=== PATIENT | female | born 1990 | race Caucasian/White ===

== ENCOUNTER 2017-02-26 21:23 | Outpatient (CLI) | payer OTHER ==
[~2017-02-26] VITALS: Ht 156.2 cm; Wt 121.0 kg
[~2017-02-26 21:23] MED LIST: ALBU18HF INHALATION; AMIT25TA9 PO; AZIT250T94 PO; CIPR500T4 PO; DICY10CA60 PO; HYDR-3498 PO; ONDA4TAB8 PO; PRED20TA PO; denies meds & allergies
[2017-02-26] MEDS ORDERED: TERBUTALINE 1 MG/ML INJ SC ONE (22:30)
--- NOTE | 2017-02-27 00:04 | RADRPT ---
PROCEDURE: US OB Limited for Estimated Weight. CLINICAL INDICATION: 26 years of age, female. Cramping and spotting. Request estimated weigh t and GAUDENCIO. TECHNIQUE: Multiple sonographic images of the pelvis were obtained. Transabdominal imaging only w as performed. The images were reviewed on a PACS workstation. Image quality: Satisfactory. COMPARISON: No prior studies are available for comparison. FINDINGS: Sky : Number of fetuses: 1 GENERAL EVALUATION: Cardiac activity: Present. FHR 141 bpm Presentation: Cephalic Placenta: Placenta site: Anterior with marginal placenta previa. Inferior tip of the placenta exten ds to the internal loss of the cervix. Cervix (transabdominal): Closed. Does not appear grossly shortened. Measures 7.4 cm. Amniotic fluid: Maximal vertical pocket 4.8 cm DATING: Clinical ERON: June 25, 2017 EGA based on ERON: 23 weeks 0 days BIOMETRY: BPD = 5.3 cm , 22 weeks 0 days HC = 20.2 cm , 22 weeks 2 days AC = . 19.6 cm , 24 weeks 2 days FL = 4.1 cm , 23 weeks 3 days Composite sonographic age: 23 weeks 0 days plus or minus 2 weeks Estimated due date by ultrasound measurements: June 25, 2017 Estimated weight 612 g (73rd percentile) ANATOMY: Not evaluated. IMPRESSION: 1. Single living fetus in cephalic presentation. 2. Clinical gestation age of 23 weeks 0 days and clinical ERON June 25, 2017 are concordant with the composite sonographic age. 3. Amniotic fluid maximal vertical pocket is 4.8 cm. 4. Anterior placenta with marginal previa. Negative for sonographic evidence of placental abruption although this is a clinical diagnosis and ultrasound may be falsely negative. With regards to the m arginal placenta previa, recommend repeat ultrasound at 28-33 weeks. RPTAT: HCTS Physician Soco Date Time Electronically viewed and signed by Physician Soco on 02/27/2017 00:04 CS/
[2017-02-27 00:23] VITALS: Ht 156.2 cm; Wt 121.0 kg
[2017-02-27 00:26] VITALS: BP 115/56; PULSE 72; RESP 16
--- NOTE | 2017-02-27 01:30 | PN ---
Triage Information Date/Time February 27, 2017 Reason for visit: Vag spotting / bleeding Weeks of Gestation 23w /Para 4/2 Diabetes: none Hypertention: none Additional information Sx's just this evening. PMHx: obesity. PSHx: none. NKDA. Objective Vital Signs Date Time Temp Pulse Resp B/P Pulse Ox O2 Delivery O2 Flow Rate FiO2 02/27/17 00:26 98.4 72 16 115/56 98 Room Air Heart Rate: 130's Heart Rate Comments Very difficult to berry picker the baby's heart rate and the possibility of and UC's on NST due to early gestational age and the pt's abdominal obesity Contractions: None Results/Medications Imaging Results CX 7.4 cm long and closed. EFW 612 grams. MVP 4.8 cm. Disposition: Discharge Assessment/Plan A: IUP at 23 weeks. False labor. Spotting, P: Was going to administer a dose of terbutaline after p.o. hydration to see if would help the pain go away when the pt said the pain had completely resolved. No bleeding since admission. PTL precautions reviewed with pt. Pelvic rest and no lifting > 20#. LEONARD DING MD Feb 27, 2017 01:30
== END 2017-02-27 01:30 | disposition home or self-care (01) ==
LOC: OBT 21:23 → OBG 21:25 → OBT 02-27 01:30
PROVIDERS: ATTEND Obstetrics & Gynecology
DX: O46.8X2 Other antepartum hemorrhage, second trimester (principal); Z3A.23 23 weeks gestation of pregnancy
CPT/HCPCS: 76815; 76817; Z7500; G0463

== ENCOUNTER 2017-04-08 16:45 | Outpatient (CLI) | payer OTHER ==
[~2017-04-08] VITALS: Ht 154.9 cm; Wt 120.0 kg
[2017-04-08 17:04] VITALS: Ht 154.9 cm; Wt 120.0 kg
[2017-04-08] MEDS ORDERED: PREN1TAB79 PO (17:04)
[2017-04-08 17:05] VITALS: BP 101/64; PULSE 82; RESP 18
[2017-04-08] MEDS ORDERED: ONDANSETRON 4 MG INJ IV PRN (17:30)
[2017-04-08] MEDS ORDERED: LACTATED RINGER'S 1,000 ML IV* SCH (17:30)
--- NOTE | 2017-04-08 18:40 | RADRPT ---
PROCEDURE: US Lower extremity Venous. CLINICAL INDICATION: Bilateral lower extremity swelling TECHNIQUE: Multiple sonographic images of the bilateral lower extremity deep venous system was obt ained utilizing grayscale, color-flow, compressive sonography and doppler imaging with augmentation. The images were reviewed on a PACS workstation. COMPARISON: None. FINDINGS: There is normal compressibility and flow within the bilateral common femoral, deep femoral, superfic ial femoral and popliteal veins. The deep veins the calf were incompletely visualized. IMPRESSION: No sonographic evidence for deep venous thrombosis in the bilateral lower extremities. Physician Jammie Date Time Electronically viewed and signed by Physician Jammie on 04/08/2017 18:39 ML/
--- NOTE | 2017-04-08 19:01 | RADRPT ---
PROCEDURE: OB ultrasound CLINICAL INDICATION: labor TECHNIQUE: Multiple transverse and longitudinal OB images of the pelvis were obtained. The images were reviewed on a high-resolution PACS workstation. COMPARISON: 02/26/2017 FINDINGS: A single live intrauterine is seen. The presentation is left transverse. The placenta is grade 1-2 and is anterior in location. No evidence of placenta abruption or previa is seen. The feta l heart rate is 152 beats per minute. The amniotic fluid index is 14.2 cm. The cervix is closed solange suring 3.2 cm in length. movement 2 tone 2 breathing 2 Amniotic fluid 2 IMPRESSION: Biophysical profile of 02/10. RPTAT: HPNM Physician Jose Roberto Date Time Electronically viewed and signed by Physician Jose Roberto on 04/08/2017 19:01 /
[2017-04-08 19:19] LABS: BASOPHILS % 0.2 % (0.0-2.0); EOSINOPHILS # 0.2 10^3/ul (0.0-0.5); EOSINOPHILS % 1.6 % (0.0-7.0); HEMOGLOBIN 10.4 g/dl (12.0-16.0); LYMPHOCYTES # 2.6 10^3/ul (0.8-2.9); LYMPHOCYTES % 25.9 % (15.0-51.0); MEAN CORPUSCULAR HGB CONC 32.5 g/dl (32.0-37.0); MEAN CORPUSCULAR VOLUME 89.1 fl (82.0-101.0); MEAN PLATELET VOLUME 11.5 fl (7.4-10.4); MONOCYTE # 0.5 10^3/ul (0.3-0.9); MONOCYTES % 5.3 % (0.0-11.0); NEUTROPHIL # 6.7 10^3/ul (1.6-7.5); NEUTROPHILS % 66.7 % (39.0-77.0); PLATELET COUNT 290 10^3/UL (140-415); RED BLOOD COUNT 3.59 10^6/ul (4.20-5.40); RED CELL DISTRIBUTION WIDTH 13.9 % (11.5-14.5); WHITE BLOOD COUNT 10.1 10^3/ul (4.8-10.8)
[2017-04-08 19:36] LABS: ALBUMIN 3.3 g/dl (3.3-4.9); ALBUMIN/GLOBULIN RATIO 0.89; BILIRUBIN,INDIRECT 0.5 mg/dl (0-1.1); BILIRUBIN,TOTAL 0.5 mg/dl (0.2-1.3); CALCIUM 8.7 mg/dl (8.4-10.2); CREATININE 0.48 mg/dl (0.44-1.00); POTASSIUM 4.3 mmol/L (3.5-5.1)
[2017-04-08 19:38] LABS: ADD UMIC YES; UR ASCORBIC ACID NEGATIVE (NEGATIVE); UR BILIRUBIN (Dip) 1+ mg/dL (NEGATIVE); UR BLOOD (Dip) NEGATIVE (NEGATIVE); UR CLARITY SLIGHTLY CLOUDY (CLEAR); UR COLOR AMBER (YELLOW); UR GLUCOSE (Dip) NEGATIVE (NEGATIVE); UR KETONES (Dip) NEGATIVE (NEGATIVE); UR LEUKOCYTE ESTERASE (Dip) NEGATIVE Leu/ul (NEGATIVE); UR MUCUS MANY /HPF (NONE SEEN); UR NITRITE (Dip) NEGATIVE (NEGATIVE); UR RBC 1 /HPF (0-5); UR SQUAMOUS EPITHELIAL CELL FEW /HPF (FEW); UR TOTAL PROTEIN (Dip) 1+ mg/dl (NEGATIVE); UR UROBILINOGEN (Dip) 2+ mg/dL (NEGATIVE)
[2017-04-08] MEDS ORDERED: ACETAMINOPHEN 500 MG TAB PO STA (20:05)
--- NOTE | 2017-04-08 22:28 | PN ---
Triage Information Date/Time April 08, 2017 Reason for visit: Shortness of breath, nausea vomiting, back pain, constipation and feeling pelvic pain and pressure with bowel movements. Weeks of Gestation 28 weeks and 6 days /Para 4 para 2 Additional information 26-year-old 4 para 2 with IUP at 28 weeks and 6 days presented with complaint of shortness of breath, nausea vomiting, back pain, leg pain as well as constipation and feeling pelvic pressure with bowel movements as well as bilateral lower abdominal pain increased with walking and activity. Patient is morbidly obese. Denies any leaking of fluid, vaginal bleeding or decreased movement or contraction Objective Vital Signs Date Time Temp Pulse Resp B/P Pulse Ox O2 Delivery O2 Flow Rate FiO2 04/08/17 17:05 98.6 82 18 101/64 98 Room Air Heart Rate: 120's Contractions: None Exam General appearance: Alert and oriented 4. Patient does not appear to be in any acute distress. Morbidly obese Abdomen: Soft, gravid, fundal height consistent with gestational age Difficulty in monitoring due to morbid obesity no contraction. extremities: No calf tenderness, no click no edema , Negative Homans sign Lungs: Clear to auscultation bilaterally CV: RRR Results/Medications Result Diagram: 04/08/17 1830 04/08/17 1830 Results 24 hrs Laboratory Tests Test 04/08/17 18:30 White Blood Count 10.1 # Red Blood Count 3.59 #L Hemoglobin 10.4 #L Hematocrit 32.0 L Mean Corpuscular Volume 89.1 Mean Corpuscular Hemoglobin 29.0 Mean Corpuscular Hemoglobin Concent 32.5 Red Cell Distribution Width 13.9 Platelet Count 290 Mean Platelet Volume 11.5 H Neutrophils % 66.7 Lymphocytes % 25.9 Monocytes % 5.3 Eosinophils % 1.6 Basophils % 0.2 Nucleated Red Blood Cells % 0.0 Neutrophils # 6.7 Lymphocytes # 2.6 Monocytes # 0.5 Eosinophils # 0.2 Basophils # 0.0 Nucleated Red Blood Cells # 0.0 Urine Color JONI Urine Clarity SLIGHTLY CLOUDY A Urine pH 6.0 Urine Specific [place] 1.030 Urine Ketones NEGATIVE Urine Nitrite NEGATIVE Urine Bilirubin 1+ H Urine Urobilinogen 2+ H Urine Leukocyte Esterase NEGATIVE Urine Microscopic RBC 1 Urine Microscopic WBC 6 H Urine Squamous Epithelial Cells FEW Urine Mucus MANY A Urine Hemoglobin NEGATIVE Urine Glucose NEGATIVE Urine Total Protein 1+ H Sodium Level 137 Potassium Level 4.3 Chloride Level 108 Carbon Dioxide Level 24 Anion Gap 9 Blood Urea Nitrogen 8 Creatinine 0.48 Glucose Level 76 Calcium Level 8.7 Total Bilirubin 0.5 Direct Bilirubin 0.00 Indirect Bilirubin 0.5 Aspartate Amino Transf (AST/SGOT) 19 Alanine Aminotransferase (ALT/SGPT) 27 Alkaline Phosphatase 151 H Total Protein 7.0 Albumin 3.3 Globulin 3.70 H Albumin/Globulin Ratio 0.89 Imaging Results PROCEDURE: US Lower extremity Venous. CLINICAL INDICATION: Bilateral lower extremity swelling TECHNIQUE: Multiple sonographic images of the bilateral lower extremity deep venous system was obtained utilizing grayscale, color-flow, compressive sonography and doppler imaging with augmentation. The images were reviewed on a PACS workstation. COMPARISON: None. FINDINGS: There is normal compressibility and flow within the bilateral common femoral, deep femoral, superficial femoral and popliteal veins. The deep veins the calf were incompletely visualized. IMPRESSION: No sonographic evidence for deep venous thrombosis in the bilateral lower extremities. PROCEDURE: OB ultrasound CLINICAL INDICATION: labor TECHNIQUE: Multiple transverse and longitudinal OB images of the pelvis were obtained. The images were reviewed on a high-resolution PACS workstation. COMPARISON: 02/26/2017 FINDINGS: A single live intrauterine is seen. The presentation is left transverse. The placenta is grade 1-2 and is anterior in location. No evidence of placenta abruption or previa is seen. The heart rate is 152 beats per minute. The amniotic fluid index is 14.2 cm. The cervix is closed measuring 3.2 cm in length. movement 2 tone 2 breathing 2 Amniotic fluid 2 IMPRESSION: Biophysical profile of 02/10. RPTAT: HPNM Disposition: Discharge Assessment/Plan IUP at 28 weeks and 6 days No evidence of labor or PPROM cervical length: 3.7 cm Shortness of breath, no evidence of DVT Doppler lower extremity negative Normal oxygen saturation in room air EKG normal Lower abdominal pelvic pain increased with walking and activity, round ligament pain. Advised patient to use abdominal binder Pelvic pain with constipation. Recommended to have stool softener and adequate hydration Patient will be discharged home testing BPP: 02/10, reassuring Strict labor precautions and kick count and follow-up within 24- 48 hours with primary DISPATCH[facility] [place] discussed with the patient and recommended. Patient verbalized understanding all above discussion and agreed to comply with instructions. MATTHEW COVINGTON MD Apr 08, 2017 22:28
--- NOTE | 2017-04-08 22:29 | TRIAGE ---
OB Triage Datetime Report Generated by CPN: 04/08/2017 22:29 Datetime: 04/08/2017 21:22 Stage of : OB Triage Datetime: 04/08/2017 21:07 Stage of : OB Triage Assessment Type: Triage Datetime: 04/08/2017 20:53 Stage of : OB Triage Labor Evaluation Frequency: None noted or palpated. Pt denies abd cramping. Monitor Mode: External Heart Rate FHR Baseline Rate: 150 Monitor Mode: Doppler Datetime: 04/08/2017 20:52 Stage of : OB Triage Datetime: 04/08/2017 20:17 Stage of : OB Triage Datetime: 04/08/2017 20:05 Stage of : OB Triage Datetime: 04/08/2017 20:00 Stage of : OB Triage Labor Evaluation Frequency: None noted or palpated. Pt denies abd cramping. Monitor Mode: External Heart Rate FHR Baseline Rate: 135 Monitor Mode: External US Variability: Moderate 6-25 bpm Accelerations: 15X15 Decelerations: None Datetime: 04/08/2017 19:35 Comments: Attempting to find FHTs. Difficult due to gestational age _ maternal size. Datetime: 04/08/2017 19:25 Stage of : OB Triage Assessment Type: Triage Maternal Assessment Level of Consciousness: Fully Conscious DTR's/Clonus: DTRs 2+; No Clonus Headache: Frontal Blurred Vision: No Respiratory Effort: Unlabored; Regular Rhythm; Equal Expansion Breath Sounds, Left: Clear and Equal Breath Sounds, Right: Clear and Equal Nausea/Vomiting: Hx of Nausea/Vomiting (Annotations: Pt reports emesis 2-3x since this am. None si nce 1100. Reports mild nausea at this time.) RUQ Epigastric Pain: Denies Lower Extremities Edema: None Degree: None Upper Extremities Edema: None Degree: None Facial Edema: None Temperature Route: Oral Fall Risk Assessment History of Falling: (0) No Secondary Diagnosis: (0) No Ambulatory Aid: (0) Bedrest/Nurse Assist IV Therapy: (0) No Gait: (0) Normal/Bedrest/Immobile Mental Status: (0) Oriented to Own Ability Fall Score: 0 Fall Risk Score Definition: No Risk: No action required Pain Assessment Pain Scale: 3 Pain Presence: Constant Pain Type: Ache Pain Location: Head Pain Relief Measures: Comfort Measures Pain Assessment Comments: Pt reports frontal MOYER pain. Will call for Tylenol orders. Datetime: 04/08/2017 18:00 Stage of : OB Triage Maternal Assessment Level of Consciousness: Fully Conscious Labor Evaluation Frequency: NONE Monitor Mode: External Resting Tone [place]: Relaxed Heart Rate FHR Baseline Rate: 145 Monitor Mode: External US Variability: Moderate 6-25 bpm Pain Assessment Pain Scale: 0 Pain Goal: 3 Vaginal Exam Membrane Status: Intact Vaginal Bleeding: None Datetime: 04/08/2017 17:01 Time of Arrival: 04/08/2017 16:29 EGA: 28.6 Arrived By: Ambulatory Arrived From: Home Chief Complaint: PT HERE C/O CONSTIPATION AND PAIN WITH URINATION Movement: Present Contractions: Denies/Absent Rupture of Membranes: Denies Vaginal Bleeding: None Vaginal Discharge: Denies Recent Sexual Intercouse: Denies Abdominal Trauma: Not Applicable Patient Complaints: None Time Provider Notified: 04/08/2017 16:45 Provider Notified: ARDALAN Initial Plan: BPP/CVL/CBC/CMP/UA/ZOFRAN/BLE DOPPLER/EKG Datetime: 04/08/2017 17:00 Assessment Type: Triage Maternal Assessment Level of Consciousness: Fully Conscious DTR's/Clonus: DTRs 2+; No Clonus Headache: Denies Blurred Vision: No Respiratory Effort: Unlabored; Regular Rhythm; Equal Expansion Breath Sounds, Left: Clear and Equal Breath Sounds, Right: Clear and Equal Nausea/Vomiting: Denies RUQ Epigastric Pain: Denies Lower Extremities Edema: None Degree: None Upper Extremities Edema: None Degree: None Facial Edema: None Fall Risk Assessment History of Falling: (0) No Secondary Diagnosis: (0) No Ambulatory Aid: (0) Bedrest/Nurse Assist IV Therapy: (0) No Gait: (0) Normal/Bedrest/Immobile Mental Status: (0) Oriented to Own Ability Fall Score: 0 Fall Risk Score Definition: No Risk: No action required Datetime: 04/08/2017 16:50 Monitor Mode: External Monitor Mode: External US
== END 2017-04-08 21:22 | disposition home or self-care (01) ==
LOC: OBT 16:45 → L-D 16:45 → OBT 21:22
PROVIDERS: ATTEND Obstetrics & Gynecology Obstetrics
DX: O26.892 Other specified pregnancy related conditions, second trimester (principal); R06.02 Shortness of breath; K59.00 Constipation, unspecified; R10.2 Pelvic and perineal pain; O21.0 Mild hyperemesis gravidarum; Z3A.28 28 weeks gestation of pregnancy
CPT/HCPCS: 36415; 76817; 76818; 80053; 81001; 85025; 93005; 93970; 96360; 96361; 96375; J2405; J7120; Z7500; Z7610; G0463

== ENCOUNTER 2017-05-09 18:15 | Outpatient (CLI) | payer OTHER ==
[~2017-05-09] VITALS: Ht 154.9 cm; Wt 122.0 kg
[~2017-05-09 18:15] MED LIST changes: -ALBU18HF INHALATION; -AMIT25TA9 PO; -AZIT250T94 PO; -CIPR500T4 PO; -DICY10CA60 PO; -HYDR-3498 PO; -ONDA4TAB8 PO; -PRED20TA PO; +PREN1TAB79 PO; -denies meds & allergies
[2017-05-09 18:43] VITALS: BP 120/57; PULSE 84; RESP 18; Ht 154.9 cm; Wt 122.0 kg
--- NOTE | 2017-05-09 19:25 | RADRPT ---
PROCEDURE: US biophysical profile. CLINICAL INDICATION: Contractions. well-being. TECHNIQUE: Multiple sonographic images of the uterus were obtained. The images were revi ewed on a PACS workstation. COMPARISON: 04/08/2017. FINDINGS: There is a single live intrauterine gestation. heart rate is 129 beats per minute. The position is transverse, maternal right. The placenta is anterior, grade 1. The GAUDENCIO is 13 cm. Breathing Movement: 2 Gross Body Movement: 2 Tone: 2 Qualitative Amniotic Fluid Volume: 2 TOTAL: 8 IMPRESSION: 1. Single viable intrauterine gestation. 2. Biophysical profile = 02/10. 3. GAUDENCIO = 13 cm. RPTAT: HFN .Jaswinder Arias MD, Date Time Electronically viewed and signed by .Jaswinder Arias MD, MD on 05/09/2017 19:24 .N/
[2017-05-09 20:20] LABS: ADD UMIC YES; UR ASCORBIC ACID NEGATIVE (NEGATIVE); UR BACTERIA FEW /HPF (NONE SEEN); UR BILIRUBIN (Dip) NEGATIVE (NEGATIVE); UR BLOOD (Dip) NEGATIVE (NEGATIVE); UR CLARITY CLOUDY (CLEAR); UR COLOR AMBER (YELLOW); UR GLUCOSE (Dip) NEGATIVE (NEGATIVE); UR KETONES (Dip) NEGATIVE (NEGATIVE); UR LEUKOCYTE ESTERASE (Dip) 2+ Leu/ul (NEGATIVE); UR MUCUS MANY /HPF (NONE SEEN); UR NITRITE (Dip) NEGATIVE (NEGATIVE); UR RBC 3 /HPF (0-5); UR SPECIFIC GRAVITY (Dip) 1.026 (1.003-1.030); UR SQUAMOUS EPITHELIAL CELL MANY /HPF (FEW); UR TOTAL PROTEIN (Dip) 1+ mg/dl (NEGATIVE); UR UROBILINOGEN (Dip) 2+ mg/dL (NEGATIVE)
--- NOTE | 2017-05-09 21:56 | RADRPT ---
PROCEDURE: US OB. CLINICAL INDICATION: labor. TECHNIQUE: Multiple sonographic images of the pelvis were obtained. Transabdominal imaging only wa s performed. The images were reviewed on a PACS workstation. Evaluation is limited due to the patie nt's body habitus. COMPARISON: Pelvic ultrasound dated 05/09/2017. FINDINGS: There is a single viable intrauterine gestation. Cardiac activity is present with a heart rate of 1 40 bpm. There is a breech presentation. Measurements were made in order to determine age. The results are as follows: BPD = 8.14 cm HC = 30.17 cm AC = 31.88 cm FL = 6.45 cm Estimated gestational age of approximately 33 weeks 6 days. The estimated date of delivery is 06/21/2017. The EFW = 2462 g, at the 80.1 percentile. The four-chamber heart, spine, stomach, bladder, kidneys, and three-vessel cord are unremarkable. The placenta is anterior, grade 1/2. There is no evidence for an abruption or placenta previa. IMPRESSION: 1. Single viable intrauterine gestation of approximately 32 weeks 6 days. 2. The estimated date of delivery is 06/21/2017. RPTAT: HLBP .Berny Saul MD, Date Time Electronically viewed and signed by .Berny Saul MD, MD on 05/09/2017 21:55 .P/
--- NOTE | 2017-05-09 22:15 | PN ---
Triage Information Date/Time May 09, 2017 Reason for visit: Back pain Weeks of Gestation 33w 2d /Para 3/2 Diabetes: none Hypertention: none Additional information Pt has not had much PNC as she has not been able to see her doctor that she was assigned to since December. C/O some LBP but is only mild to moderate and comes and goes. No CVAT. No dysuria. PMHx: none POBHx: x 2. PSHx: none. NKDA. Objective Vital Signs Date Time Temp Pulse Resp B/P Pulse Ox O2 Delivery O2 Flow Rate FiO2 05/09/17 18:43 97.3 84 18 120/57 98 Heart Rate: 130's Heart Rate Comments Accels to 150 bpm. No decels but very difficult to keep the baby on the monitor due to pt's abdominal obesity and the baby is moving a lot. Exam Deferred. Results/Medications Results 24 hrs Laboratory Tests Test 05/09/17 19:00 Urine Color JONI Urine Clarity CLOUDY A Urine pH 6.0 Urine Specific [place] 1.026 Urine Ketones NEGATIVE Urine Nitrite NEGATIVE Urine Bilirubin NEGATIVE Urine Urobilinogen 2+ H Urine Leukocyte Esterase 2+ H Urine Microscopic RBC 3 Urine Microscopic WBC 12 H Urine Squamous Epithelial Cells MANY A Urine Bacteria FEW A Urine Mucus MANY A Urine Hemoglobin NEGATIVE Urine Glucose NEGATIVE Urine Total Protein 1+ H Imaging Results BPP 8. GAUDENCIO 13 cm. BREECH. EFW 2462 grams. Normal basic anatomy. Anterior placenta. Disposition: Discharge Assessment/Plan A: IUP at 33w 2d. Back pain. P: D/C home. Urine cx done. LEONARD DING MD May 09, 2017 22:14
--- NOTE | 2017-05-09 22:52 | TRIAGE ---
OB Triage Datetime Report Generated by CPN: 05/09/2017 22:51 Datetime: 05/09/2017 22:06 Stage of : OB Triage Datetime: 05/09/2017 21:36 Labor Evaluation Monitor Mode: External Pattern: Normal: <= 5 Contractions in 10 Minutes Resting Tone [place]: Relaxed Pain Assessment Pain Scale: 0 Pain Presence: None/Denies Pain Type: N/A Datetime: 05/09/2017 20:17 Stage of : OB Triage Labor Evaluation Monitor Mode: External Quality: Mild Resting Tone [place]: Relaxed Heart Rate FHR Baseline Rate: 130 Monitor Mode: External US Pain Assessment Pain Scale: 0 Pain Presence: None/Denies Pain Type: N/A Datetime: 05/09/2017 19:50 Stage of : OB Triage Datetime: 05/09/2017 19:10 Stage of : OB Triage Labor Evaluation Monitor Mode: External Quality: Mild Pattern: Normal: <= 5 Contractions in 10 Minutes Resting Tone [place]: Relaxed Heart Rate FHR Baseline Rate: 140 Monitor Mode: External US Comments: Baby active and difficult to monitor d/t pt habitus Pain Assessment Pain Scale: 3 Pain Presence: Intermittent Pain Type: Ache Pain Location: Back Datetime: 05/09/2017 18:46 Stage of : OB Triage Maternal Assessment Level of Consciousness: Fully Conscious DTR's/Clonus: DTRs 2+; No Clonus Headache: Denies Blurred Vision: No Respiratory Effort: Unlabored; Regular Rhythm; Equal Expansion Breath Sounds, Left: Clear and Equal Breath Sounds, Right: Clear and Equal Nausea/Vomiting: Denies RUQ Epigastric Pain: Denies Lower Extremities Edema: Bilateral Lower Extremities Degree: 1+ Upper Extremities Edema: None Degree: None Facial Edema: None Temperature Route: Oral Fall Risk Assessment History of Falling: (0) No Secondary Diagnosis: (0) No Ambulatory Aid: (0) Bedrest/Nurse Assist IV Therapy: (0) No Gait: (0) Normal/Bedrest/Immobile Mental Status: (0) Oriented to Own Ability Fall Score: 0 Fall Risk Score Definition: No Risk: No action required Comment: presented to triage c/o lower back pain started at 0600, denies bleeding or leaking of wa ter, last visit to her doctor was december and no follow up after that., denies problem with ot her Labor Evaluation Monitor Mode: External (Annotations: initial) Heart Rate FHR Baseline Rate: 140 (Annotations: initial) Monitor Mode: External US Pain Assessment Pain Scale: 8 Datetime: 05/09/2017 18:45 Time of Arrival: 05/09/2017 18:45 EGA: 33.2 Arrived By: Ambulatory Arrived From: Home Chief Complaint: lower back pain Movement: Present Time Contractions Began: 05/09/2017 06:00 Rupture of Membranes: Denies Vaginal Bleeding: None Vaginal Discharge: Denies Recent Sexual Intercouse: Denies Abdominal Trauma: Not Applicable Patient Complaints: Back Pain Additional Patient Complaints: limited care d/t insurance problems Time Provider Notified: 05/09/2017 18:58 Provider Notified: Foroohar Initial Plan: efm/ u/s/ ua Datetime: 04/08/2017 20:53 Comments: MD aware of difficulty monitoring FHTs Datetime: 04/08/2017 20:39 Stage of : OB Triage Datetime: 04/08/2017 19:25 Fall Score: 0 Fall Risk Score Definition: No Risk: No action required Datetime: 04/08/2017 17:01 EGA: 28.6 Datetime: 04/08/2017 17:00 Fall Score: 0 Fall Risk Score Definition: No Risk: No action required
== END 2017-05-09 22:20 | disposition home or self-care (01) ==
LOC: OBT 18:15 → L-D 18:15 → OBT 22:20
DX: O26.893 Other specified pregnancy related conditions, third trimester (principal); Z3A.33 33 weeks gestation of pregnancy; M54.9 Dorsalgia, unspecified
CPT/HCPCS: 76805; 76818; 81001; Z7500; G0463

== ENCOUNTER 2017-05-27 21:40 | Outpatient (CLI) | payer OTHER ==
[~2017-05-27] VITALS: Ht 157.5 cm; Wt 119.9 kg
[2017-05-27 23:02] VITALS: Ht 157.5 cm; Wt 119.9 kg
[2017-05-27 23:16] VITALS: BP 136/73; PULSE 80; RESP 18
--- NOTE | 2017-05-27 23:28 | RADRPT ---
PROCEDURE: US biophysical profile. CLINICAL INDICATION: CONTRACTIONS TECHNIQUE: Multiple sonographic images of the pelvis were obtained. The images were reviewed on a PACS workstation. COMPARISON: No prior studies are available for comparison. FINDINGS: There is a single viable intrauterine gestation, in breech presentation. heart rate measures 1 31 beats per minute. Amniotic fluid index is measured at 12.2 cm. There is an anterior placenta, gra de I to II.. Results of the biophysical profile are as follows breathing movement = 2/2 Gross body movement = 2/2 tone = 2/2 Quantitative amniotic fluid volume = 2/2. This yields a biophysical profile score of 8/8. IMPRESSION: Single viable intrauterine gestation, with biophysical profile of 8/8. RPTAT: HBST .Hesham De La Paz MD, Date Time Electronically viewed and signed by .Hesham De La Paz MD, MD on 05/27/2017 23:28 .T/
[2017-05-27 23:52] LABS: ADD UMIC YES; UR ASCORBIC ACID 40 mg/dL (NEGATIVE); UR BILIRUBIN (Dip) 1+ mg/dL (NEGATIVE); UR BLOOD (Dip) NEGATIVE (NEGATIVE); UR CLARITY CLEAR (CLEAR); UR COLOR AMBER (YELLOW); UR GLUCOSE (Dip) NEGATIVE (NEGATIVE); UR KETONES (Dip) NEGATIVE (NEGATIVE); UR LEUKOCYTE ESTERASE (Dip) TRACE Leu/ul (NEGATIVE); UR MUCUS MANY /HPF (NONE SEEN); UR NITRITE (Dip) NEGATIVE (NEGATIVE); UR RBC 0 /HPF (0-5); UR SPECIFIC GRAVITY (Dip) 1.031 (1.003-1.030); UR SQUAMOUS EPITHELIAL CELL FEW /HPF (FEW); UR TOTAL PROTEIN (Dip) 1+ mg/dl (NEGATIVE); UR UROBILINOGEN (Dip) 2+ mg/dL (NEGATIVE)
[2017-05-28 00:27] LABS: BARBITURATES Negative (NEGATIVE); BENZODIAZEPINES Negative (NEGATIVE); CANNABINOIDS Negative (NEGATIVE); COCAINE Negative (NEGATIVE); OPIATES Negative (NEGATIVE)
--- NOTE | 2017-05-28 00:50 | TRIAGE ---
OB Triage Datetime Report Generated by CPN: 05/28/2017 00:49 Datetime: 05/28/2017 00:44 Stage of : OB Triage Datetime: 05/28/2017 00:32 Vaginal Exam Dilatation (cms): 0.0 Effacement (%): 20 Station: -4 Exam By: GSTRARITU RN Vaginal Bleeding: None Cervix, Consistency: Firm Cervix, Position: Posterior Presentation 'A': Unable to Assess Datetime: 05/27/2017 23:31 Monitor Mode: Palpation Resting Tone [place]: Relaxed Datetime: 05/27/2017 23:30 Stage of : OB Triage Labor Evaluation Frequency: X3 Monitor Mode: External Duration (sec)2399: 40-100 Quality: Mild Pattern: Normal: <= 5 Contractions in 10 Minutes Resting Tone [place]: Relaxed Heart Rate FHR Baseline Rate: 135 Monitor Mode: External US Variability: Moderate 6-25 bpm Accelerations: 15X15 Decelerations: None Category: Category I Datetime: 05/27/2017 23:22 Vaginal Exam Dilatation (cms): 1.0 Effacement (%): 40 Station: -3 Exam By: DGS RN Vaginal Bleeding: None Cervix, Consistency: Moderate Cervix, Position: Midposition Datetime: 05/27/2017 23:16 Temperature Route: Oral Pain Assessment Pain Scale: 10 Pain Presence: Intermittent Pain Type: Pressure Pain Location: Perineum Pain Goal: 4 Pain Relief Measures: Comfort Measures Datetime: 05/27/2017 22:48 Comments: off monitor Datetime: 05/27/2017 22:37 Monitor Mode: Palpation Resting Tone [place]: Relaxed Datetime: 05/27/2017 22:30 Labor Evaluation Frequency: X3 Monitor Mode: External Duration (sec)2399: 60 Pattern: Normal: <= 5 Contractions in 10 Minutes Heart Rate FHR Baseline Rate: 145 Monitor Mode: External US FHR Baseline Changes: No Baseline Change Variability: Moderate 6-25 bpm Accelerations: 15X15 Datetime: 05/27/2017 22:00 Stage of : OB Triage Datetime: 05/27/2017 21:42 Time of Arrival: 05/27/2017 21:30 EGA: 36.3 Arrived By: Wheelchair Arrived From: Home Chief Complaint: uc's since am every 10min Movement: Present Contractions: Irregular Time Contractions Began: 05/27/2017 08:00 Contractions: q10min Rupture of Membranes: Denies Vaginal Discharge: Denies Recent Sexual Intercouse: Denies Abdominal Trauma: Not Applicable Patient Complaints: Contractions Time Provider Notified: 05/27/2017 22:00 Provider Notified: ARDALAN Initial Plan: efm, call ob Datetime: 05/27/2017 21:40 Stage of : OB Triage Assessment Type: Triage Maternal Assessment Level of Consciousness: Fully Conscious Headache: Denies Blurred Vision: No Respiratory Effort: Unlabored; Regular Rhythm; Equal Expansion Nausea/Vomiting: Denies RUQ Epigastric Pain: Denies Facial Edema: None Fall Risk Assessment History of Falling: (0) No Secondary Diagnosis: (0) No Ambulatory Aid: (0) Bedrest/Nurse Assist IV Therapy: (0) No Gait: (0) Normal/Bedrest/Immobile Mental Status: (0) Oriented to Own Ability Fall Score: 0 Fall Risk Score Definition: No Risk: No action required Datetime: 05/09/2017 18:46 Fall Score: 0 Fall Risk Score Definition: No Risk: No action required Datetime: 05/09/2017 18:45 EGA: 33.6 Datetime: 04/08/2017 19:25 Fall Score: 0 Fall Risk Score Definition: No Risk: No action required Datetime: 04/08/2017 17:01 EGA: 29.3 Datetime: 04/08/2017 17:00 Fall Score: 0 Fall Risk Score Definition: No Risk: No action required
--- NOTE | 2017-05-28 03:04 | PN ---
Triage Information Date/Time May 27, 2017 Reason for visit: Patient presented with complaint of pelvic pain during walking and pelvic pressure symptoms Weeks of Gestation 36 weeks and 3 days /Para 4 para 2 Diabetes: none Hypertention: none Additional information 27-year-old with IUP at 36 weeks and 3 days with no care since December 2016 and reported EDC of June 11, 2017 presented with complaint of pelvic pain increasing during walking and pressure symptoms. She denies any leaking of fluid vaginal bleeding or decreased movement. She had only a limited amount of care at the beginning of . She had a couple visits in triage and had some of her labs done. Never tested for GDM. She was noted 1 cm 40% -3. Hemoglobin A1c was 5.3 today. Her NST was reactive and category 1. She was observed in triage and repeat exam did not show any cervical change. Objective Vital Signs Date Time Temp Pulse Resp B/P Pulse Ox O2 Delivery O2 Flow Rate FiO2 05/27/17 23:16 97.9 80 18 136/73 Room Air Heart Rate: 130's Contractions: None Exam General appearance: Alert and oriented 4. Patient does not appear to be in any acute distress. Abdomen:: Soft, no tenderness, no rebound tenderness, no guarding no rigidity, fundal height consistent with gestational age. NST: Category 1 No contraction of the monitor. Extremities: No calf tenderness, no click no edema Results/Medications Results 24 hrs Laboratory Tests Test 05/27/17 22:40 05/27/17 23:00 Hemoglobin A1c 5.3 Hepatitis B Surface Antigen NEGATIVE HIV (1&2) Antibody NEGATIVE Urine Color JONI Urine Clarity CLEAR Urine pH 5.0 Urine Specific [place] 1.031 H Urine Ketones NEGATIVE Urine Nitrite NEGATIVE Urine Bilirubin 1+ H Urine Urobilinogen 2+ H Urine Leukocyte Esterase TRACE A Urine Microscopic RBC 0 Urine Microscopic WBC 0 Urine Squamous Epithelial Cells FEW Urine Mucus MANY A Urine Hemoglobin NEGATIVE Urine Glucose NEGATIVE Urine Total Protein 1+ H Urine Opiates Screen Negative Urine Barbiturates Negative Urine Amphetamines Screen Negative Urine Benzodiazepines Screen Negative Urine Cocaine Screen Negative Urine Cannabinoids Negative Imaging Results PROCEDURE: US biophysical profile. CLINICAL INDICATION: CONTRACTIONS TECHNIQUE: Multiple sonographic images of the pelvis were obtained. The images were reviewed on a PACS workstation. COMPARISON: No prior studies are available for comparison. FINDINGS: There is a single viable intrauterine gestation, in breech presentation. heart rate measures 131 beats per minute. Amniotic fluid index is measured at 12.2 cm. There is an anterior placenta, grade I to II.. Results of the biophysical profile are as follows breathing movement = 2/2 Gross body movement = 2/2 tone = 2/2 Quantitative amniotic fluid volume = 2/2. This yields a biophysical profile score of 8/8. IMPRESSION: Single viable intrauterine gestation, with biophysical profile of 8/8. RPTAT: HBST Disposition: Discharge Assessment/Plan IUP at 36 weeks and 3 days Limited care Breech presentation Not in labor Hemoglobin A1c 5.3 labor precaution and kick count discussed Urine toxicology negative Will be discharged home return to triage for any concern And next week to be scheduled for delivery due to breech presentation Strict kick counts and labor precaution discussed with the patient in detail She was advised to be seen in clinic that she previously was seen as soon as possible for follow-up after triage visit Patient verbalized understanding MATTHEW COVINGTON MD May 28, 2017 03:04
[2017-05-29 13:21] LABS: RUBELLA ANTIBODY - IGG 2.39 index
== END 2017-05-28 00:51 | disposition home or self-care (01) ==
LOC: OBT 21:40 → L-D 21:41 → OBT 05-28 00:51
PROVIDERS: ATTEND Obstetrics & Gynecology Obstetrics
DX: O60.03 Preterm labor without delivery, third trimester (principal); O32.1XX0 Maternal care for breech presentation, not applicable or unspecified; Z3A.36 36 weeks gestation of pregnancy
CPT/HCPCS: 76818; 80307; 81001; 83036; 86592; 86703; 86762; 86900; 86901; 87081; 87340; G0463

== ENCOUNTER 2017-06-03 15:21 | Outpatient (CLI) | payer OTHER ==
[~2017-06-03] VITALS: Ht 154.9 cm; Wt 120.0 kg
--- NOTE | 2017-06-03 15:59 | RADRPT ---
PROCEDURE: US OB. CLINICAL INDICATION: labor TECHNIQUE: Multiple sonographic images of the pelvis were obtained. The images were reviewed on a PACS workstation. COMPARISON: No prior studies are available for comparison. FINDINGS: There is a single viable intrauterine gestation. Cardiac activity is present with 144 beats per min [id number]. There is a cephalic presentation. Measurements were made in order to determine age. The results are as follows: BPD =9.14 cm HC =32.39 cm AC =33.12 cm FL =7.23 cm. Estimated gestational age of approximately 37 weeks 0 days. The estimated date of delivery is 06/24/2017. The EFW = 3088 g 59.3% . The placenta is anterior grade II.. There is no evidence for an abruption There is a normal amount of amniotic fluid IMPRESSION: Single viable intrauterine gestation of approximately 37 weeks 0 days. The estimated date of delive ry is 06/24/2017 . .Damion Gray MD, Date Time Electronically viewed and signed by .Damion Gray MD, on 06/03/2017 15:59 .W/
--- NOTE | 2017-06-03 16:01 | RADRPT ---
PROCEDURE: US OB. CLINICAL INDICATION: labor TECHNIQUE: Multiple sonographic images of the pelvis were obtained. The images were reviewed on a PACS workstation. COMPARISON: 05/27/2017 FINDINGS: There is a single live intrauterine . cardiac activity is identified at a rate of 13 7 beats per minute. presentation is cephalic. Placenta is anterior grade II. Biophysical profile score is as follows: Breathing 2 Movements 2 Tone 2 Fluid volume 2 Amniotic fluid index = 15 cm Total biophysical profile score = 8/8 IMPRESSION: Biophysical profile score = 8/8 RPTAT: HH .Damion Gray MD, MD Date Time Electronically viewed and signed by .Damion Gray MD, on 06/03/2017 16:00 .W/
[2017-06-03 16:07] VITALS: BP 115/71; PULSE 65; RESP 18; Ht 154.9 cm; Wt 120.0 kg
--- NOTE | 2017-06-03 17:22 | TRIAGE ---
OB Triage Datetime Report Generated by CPN: 06/03/2017 17:22 Datetime: 06/03/2017 16:04 Assessment Type: Triage Maternal Assessment Level of Consciousness: Fully Conscious DTR's/Clonus: DTRs 2+; No Clonus Headache: Denies Blurred Vision: No Respiratory Effort: Unlabored; Regular Rhythm; Equal Expansion Breath Sounds, Left: Clear and Equal Breath Sounds, Right: Clear and Equal Nausea/Vomiting: Denies RUQ Epigastric Pain: Denies Lower Extremities Edema: None Degree: None Upper Extremities Edema: None Degree: None Facial Edema: None Fall Risk Assessment History of Falling: (0) No Secondary Diagnosis: (0) No Ambulatory Aid: (0) Bedrest/Nurse Assist IV Therapy: (0) No Gait: (0) Normal/Bedrest/Immobile Mental Status: (0) Oriented to Own Ability Fall Score: 0 Fall Risk Score Definition: No Risk: No action required Datetime: 06/03/2017 16:03 Time of Arrival: 06/03/2017 15:05 EGA: 37.3 Arrived By: Ambulatory Arrived From: Home Chief Complaint: PT HERE FOR F/U NST/BPP Movement: Present Contractions: Denies/Absent Rupture of Membranes: Denies Vaginal Bleeding: None Vaginal Discharge: Denies Recent Sexual Intercouse: Denies Abdominal Trauma: Not Applicable Patient Complaints: None Time Provider Notified: 06/03/2017 15:10 Provider Notified: ARDALAN Initial Plan: NST/BPP/EFW/UA/BG Datetime: 06/03/2017 16:01 Monitor Mode: External Monitor Mode: External US Datetime: 05/28/2017 00:30 Labor Evaluation Frequency: X1 Monitor Mode: External Duration (sec)2399: 60 Pattern: Normal: <= 5 Contractions in 10 Minutes Heart Rate FHR Baseline Rate: 125 Monitor Mode: External US FHR Baseline Changes: No Baseline Change Variability: Moderate 6-25 bpm Accelerations: 15X15 Datetime: 05/27/2017 21:42 EGA: 36.3 Datetime: 05/27/2017 21:40 Fall Score: 0 Fall Risk Score Definition: No Risk: No action required Datetime: 05/09/2017 18:46 Fall Score: 0 Fall Risk Score Definition: No Risk: No action required Datetime: 05/09/2017 18:45 EGA: 33.6 Datetime: 04/08/2017 19:25 Fall Score: 0 Fall Risk Score Definition: No Risk: No action required Datetime: 04/08/2017 17:01 EGA: 29.3 Datetime: 04/08/2017 17:00 Fall Score: 0 Fall Risk Score Definition: No Risk: No action required
--- NOTE | 2017-06-03 17:43 | PN ---
Triage Information Date/Time 06/03/2017 Reason for visit: Weeks of Gestation 37 weeks and 3 days /Para Diabetes: none Hypertention: none Additional information 27 years old with IUP at 37 weeks and 3 days with poor prental care and incidental finding of breech presentation in ultrasound noted last week when she presented to triage due to cramps. Patient here today for follow-up ultrasound. She had her initial care at [facility] however she was noncompliant with visits and had no visit since 17 weeks and was discharged from the clinic. No care since 17 weeks of . She was noted to have a breech presentation in ultrasound last week when she came for rule out labor. She denies any contractions, leaking of fluid, vaginal bleeding or decreased movement. No complaint. Random blood sugar 65 today and her hemoglobin A1c was 5.3 last visit. She missed her gestation diabetic testing. Her urine drug screen was negative last week. Objective Vital Signs Date Time Temp Pulse Resp B/P Pulse Ox O2 Delivery O2 Flow Rate FiO2 06/03/17 16:07 98.4 65 18 115/71 98 Room Air Heart Rate: 130's Contractions: None Exam General appearance: Alert and oriented 4. Patient does not appear to be in any acute distress. Abdomen: Soft, gravid, fundal height consistent with gestational age. No tenderness, no rebound tenderness, no guarding or rigidity NST: Category 1 BPP: 02/10 Ultrasound: EFW 69.3 percentile and placenta anterior grade 2 with no evidence of abruption. Vertex presentation, BPP: 02/10 She was offered flu and Tdap vaccination which she declined in prior visit Results/Medications Results 24 hrs Laboratory Tests Test 06/03/17 16:19 Bedside Glucose 65 L Imaging Results PROCEDURE: US OB. CLINICAL INDICATION: labor TECHNIQUE: Multiple sonographic images of the pelvis were obtained. The images were reviewed on a PACS workstation. COMPARISON: 05/27/2017 FINDINGS: There is a single live intrauterine . cardiac activity is identified at a rate of 137 beats per minute. presentation is cephalic. Placenta is anterior grade II. Biophysical profile score is as follows: Breathing 2 Movements 2 Tone 2 Fluid volume 2 Amniotic fluid index = 15 cm Total biophysical profile score = 8/8 IMPRESSION: Biophysical profile score = 8/8 RPTAT: PROCEDURE: US OB. CLINICAL INDICATION: labor TECHNIQUE: Multiple sonographic images of the pelvis were obtained. The images were reviewed on a PACS workstation. COMPARISON: No prior studies are available for comparison. FINDINGS: There is a single viable intrauterine gestation. Cardiac activity is present with 144 beats per minute. There is a cephalic presentation. Measurements were made in order to determine age. The results are as follows: BPD = 9.14 cm HC = 32.39 cm AC = 33.12 cm FL = 7.23 cm. Estimated gestational age of approximately 37 weeks 0 days. The estimated date of delivery is 06/24/2017. The EFW = 3088 g 59.3% . The placenta is anterior grade II.. There is no evidence for an abruption There is a normal amount of amniotic fluid IMPRESSION: Single viable intrauterine gestation of approximately 37 weeks 0 days. The estimated date of delivery is 06/24/2017 . .Damion Gray MD, MD Date Time Electronically viewed and signed by .Damion Gray MD, MD on 06/03/2017 15:59 .W/ Disposition: Discharge Assessment/Plan IUP at 37 weeks and 3 days Limited care Noncompliant patient Estimated weight 59.3 percentile Vertex presentation Not in labor Patient will be discharged home labor precaution and kick count and follow-up within 3-4 days with her primary OB office discussed with the patient otherwise advised the patient to return to triage for NST/BPP twice a week Recommended the patient to have gestational glucose screening as outpatient. She already has noticed that however her hemoglobin A1c and random blood sugar within normal limit Patient verbalized understanding All questions were answered Increased risk of complications of due to noncompliance with visits discussed and reviewed with the patient in detail Urine toxicology negative MATTHEW COVINGTON MD Jun 03, 2017 17:43
== END 2017-06-03 17:15 | disposition home or self-care (01) ==
LOC: OBT 15:21 → L-D 15:24 → OBT 17:15
PROVIDERS: ATTEND Obstetrics & Gynecology Obstetrics
DX: O26.893 Other specified pregnancy related conditions, third trimester (principal); Z3A.37 37 weeks gestation of pregnancy; R10.9 Unspecified abdominal pain
CPT/HCPCS: 76815; 76818; 82962; Z7500; G0463

== ENCOUNTER 2017-06-19 22:13 | Inpatient (IN) | payer OTHER ==
[~2017-06-19] VITALS: Ht 154.9 cm; Wt 120.7 kg
[2017-06-19 22:45] VITALS: Ht 154.9 cm; Wt 120.7 kg
[2017-06-19 22:46] VITALS: BP 148/85; PULSE 91; RESP 18
--- NOTE | 2017-06-19 23:43 | RADRPT ---
PROCEDURE: OB ultrasound for biophysical profile with GAUDENCIO. CLINICAL INDICATION: Contractions. TECHNIQUE: Multiple sonographic images of the gravid uterus were obtained. COMPARISON: Exam dated 06/03/2017. FINDINGS: breathing movement = 2/2 tone = 2/2 motion = 2/2 GAUDENCIO = 2/2 Single viable intrauterine gestation. Heart rate: 130 bpm. Presentation: Cephalic. Placenta: Anterior, grade II No evidence of abruption or placenta previa. GAUDENCIO = 13.3 cm IMPRESSION: 1. Single viable intrauterine gestation. 2. Biophysical profile = 8. 3. GAUDENCIO = 13.3 cm. RPTAT: HLBP .Berny Saul MD, Date Time Electronically viewed and signed by .Berny Saul MD, MD on 06/19/2017 23:43 .P/
--- NOTE | 2017-06-19 23:55 | RADRPT ---
PROCEDURE: US OB. CLINICAL INDICATION: Contractions. TECHNIQUE: Multiple sonographic images of the pelvis were obtained. Transabdominal imaging only w as performed. The images were reviewed on a PACS workstation. COMPARISON: 06/03/2017. FINDINGS: Single live intrauterine is identified. Cardiac activity is present with 129 beats per mi nute. There is a vertex presentation. Measurements: BPD = 38 weeks 3 days. HC = 39 weeks 0 days. AC = 37 weeks 0 days. FL = 38 weeks 3 days. Estimated gestational age of approximately 38 weeks 2 days. The estimated date of delivery is 07/01/2017. The EFW = 3300 g which is at the 36 percentile Limited evaluation of anatomy is without gross abnormality. The placenta is anterior. IMPRESSION: Single live intrauterine gestation of approximately 38 weeks 2 days. RPTAT: HMVK .Bora Dejesus MD, MD Date Time Electronically viewed and signed by .Bora Dejesus MD, MD on 06/19/2017 23:54 .K/
[2017-06-20 00:15] LABS: BASOPHILS % 0.2 % (0.0-2.0); EOSINOPHILS # 0.2 10^3/ul (0.0-0.5); EOSINOPHILS % 1.7 % (0.0-7.0); HEMATOCRIT 31.2 % (37.0-47.0); HEMOGLOBIN 9.9 g/dl (12.0-16.0); LYMPHOCYTES % 24.6 % (15.0-51.0); MEAN CORPUSCULAR HEMOGLOBIN 25.8 pg (29.0-33.0); MEAN CORPUSCULAR HGB CONC 31.7 g/dl (32.0-37.0); MEAN CORPUSCULAR VOLUME 81.5 fl (82.0-101.0); MEAN PLATELET VOLUME 11.4 fl (7.4-10.4); MONOCYTE # 0.6 10^3/ul (0.3-0.9); NEUTROPHIL # 8.2 10^3/ul (1.6-7.5); NEUTROPHILS % 68.2 % (39.0-77.0); PLATELET COUNT 306 10^3/UL (140-415); RED BLOOD COUNT 3.83 10^6/ul (4.20-5.40); RED CELL DISTRIBUTION WIDTH 14.6 % (11.5-14.5); WHITE BLOOD COUNT 12.1 10^3/ul (4.8-10.8)
[2017-06-20 00:35] LABS: ANION GAP 12 (8-16)
[2017-06-20 00:38] LABS: ADD UMIC YES; UR ASCORBIC ACID 20 mg/dL (NEGATIVE); UR BILIRUBIN (Dip) NEGATIVE (NEGATIVE); UR BLOOD (Dip) NEGATIVE (NEGATIVE); UR CLARITY CLEAR (CLEAR); UR COLOR AMBER (YELLOW); UR GLUCOSE (Dip) NEGATIVE (NEGATIVE); UR KETONES (Dip) 1+ mg/dL (NEGATIVE); UR LEUKOCYTE ESTERASE (Dip) NEGATIVE Leu/ul (NEGATIVE); UR MUCUS MANY /HPF (NONE SEEN); UR NITRITE (Dip) NEGATIVE (NEGATIVE); UR RBC 0 /HPF (0-5); UR SPECIFIC GRAVITY (Dip) 1.029 (1.003-1.030); UR TOTAL PROTEIN (Dip) 1+ mg/dl (NEGATIVE); UR UROBILINOGEN (Dip) 2+ mg/dL (NEGATIVE)
[2017-06-20 00:48] LABS: ALANINE AMINOTRANSFERASE 34 IU/L (13-69); ALKALINE PHOSPHATASE 212 IU/L (42-121); ASPARTATE AMINO TRANSFERASE 19 IU/L (15-46); BILIRUBIN,TOTAL 0.7 mg/dl (0.2-1.3); BLOOD UREA NITROGEN 8 mg/dl (7-20); CALCIUM 9.1 mg/dl (8.4-10.2); CARBON DIOXIDE 25 mmol/L (21-31); CHLORIDE 105 mmol/L (97-110); CREATININE 0.52 mg/dl (0.44-1.00); GLUCOSE 82 mg/dl (70-220); POTASSIUM 4.1 mmol/L (3.5-5.1); SODIUM 138 mmol/L (135-144); URIC ACID 3.9 mg/dl (3.1-7.9)
[2017-06-20 00:49] LABS: ALBUMIN 3.3 g/dl (3.3-4.9); BILIRUBIN,INDIRECT 0.7 mg/dl (0-1.1); TOTAL PROTEIN 7.4 g/dl (6.1-8.1)
[2017-06-20 00:50] LABS: INR 0.97
[2017-06-20 00:51] LABS: PARTIAL THROMBOPLASTIN TIME 29.4 Sec (25.0-35.0)
[2017-06-20] MEDS ORDERED: CARBOPROST 250 MCG INJ IM PRN (02:00)
[2017-06-20] MEDS ORDERED: OXYTOCIN 30 UNITS/LR 500 ML IV PRN (02:00)
[2017-06-20] MEDS ORDERED: MISOPROSTOL 200 MCG TAB PR PRN (02:00)
[2017-06-20] MEDS ORDERED: BUTORPHANOL 2 MG INJ IV PRN ×2 (02:00)
[2017-06-20] MEDS ORDERED: LIDOCAINE 1% (MPF) 30 ML INJ INJ PRN (02:00)
[2017-06-20] MEDS ORDERED: IBUPROFEN 600 MG TAB PO PRN (02:00)
[2017-06-20] MEDS ORDERED: HYDROCODONE/APAP (5/325) TAB PO PRN (02:00)
[2017-06-20] MEDS ORDERED: DINOPROSTONE 10 MG VAG SUPP VAG ONE ×2 (02:00→20:00)
[2017-06-20] MEDS ORDERED: METHYLERGONOVINE 0.2 MG INJ IM PRN (02:00)
[2017-06-20] MEDS ORDERED: AMPICILLIN 2 GM/NS (PMX) 100 ML IV ONE (02:00)
[2017-06-20] MEDS ORDERED: OXYTOCIN 30 UNITS/LR 500 ML IV SCH ×3 (02:00→02:30)
[2017-06-20] MEDS: LACTATED RINGER'S 1,000 ML IV SCH ×5 (02:24→15:40)
--- NOTE | 2017-06-20 02:48 | HP ---
Date/Time of Note Date/Time of Note DATE: 06/20/17 TIME: 02:34 OB - History Hx of Present Free Text/Dictation 27y.o at 39w 1d presented to triage c/o uterine contractions irregularly with intact membrane her care was interrupted due [place] came back ,basically seen at triage here in multiple occasions at triage initial BP 148/85 and other x2 occasions higher pIH lab nl but she is already 39w1d , with poss PIH admitted for augmentation of labor/induction GBS unknown Chief Complaint: UC Estimated Due Date: Jun 25, 2017 : 4 Para: 2 Spontaneous : 1 Therapeutic : 0 Care: Limited Care Ultrasounds: Other Obstetrical Complications: None Medical Complications: None Past Family/Social History * Past Medical, Surgical, Family and Obstetric Histories reviewed from chart. Blood Type: Unknown Rubella: unknown RPR/VDRL: Unknown GBS Status: Unknown HBsAG: Unknown OB Admission Exam Vital Signs Vital Signs Vital Signs Date Time Temp Pulse Resp B/P Pulse Ox O2 Delivery O2 Flow Rate FiO2 06/19/17 22:46 98.3 91 18 148/85 Room Air Physical Exam HEENT: WNL Cervical Dilatation: Fingertip Effacement: 0% Station: -3 Membranes: Intact Amniotic Fluid: Unevaluable Heart Rate: 140's Accelerations: Accelerations Present Decelerations: No Decelerations Varibility: Moderate Contractions on Admission: >10 Minutes Apart Intensity: Mild Last 72 hours Lab Results CBC & BMP 06/20/17 00:06 Liver Function Test 06/20/17 00:06 Alanine Aminotransferase (ALT/SGPT) 34 Albumin 3.3 Alkaline Phosphatase 212 H Aspartate Amino Transf (AST/SGOT) 19 Direct Bilirubin 0.00 Total Protein 7.4 OB Assessment/Plan Reason for admission: induction of labor Other Assessment: [id number] Induction Method: per Misoprostol Protocol KRISTEN LING MD Jun 20, 2017 02:46
[2017-06-20 07:51] LABS: BARBITURATES Negative (NEGATIVE); BENZODIAZEPINES Negative (NEGATIVE); CANNABINOIDS Negative (NEGATIVE); COCAINE Negative (NEGATIVE); OPIATES Negative (NEGATIVE)
[2017-06-20] MEDS: AMPICILLIN 1 GM/NS (PMX) 50 ML IV SCH ×3 (10:17→20:04)
--- NOTE | 2017-06-20 18:32 | PN ---
Date/Time of Note Date/Time of Note DATE: 06/20/17 TIME: 18:26 OB Subjective Subjective Subjective June 20, 2017 OB progress note This patient is a 19 years 0LD, 4 para 2 1 about 29 weeks and 2 days who was seen yesterday and admitted for induction due to possible PIH Here is a short version of her admission note by admitting physician yesterday: " ( 27y.o at 39w 1d presented to triage c/o uterine contractions irregularly with intact membrane her care was [place] due to [place] came back ,basically seen at triage here in multiple occasions at triage initial BP 148/85 and other x2 occasions higher. ). Her blood pressure is now under fairly good control. A Cervidil was placed today 12 hours ago. And Cervidil was removed after 12 hours. The pelvic examination was about 2-3 cm 50% effaced intact membrane. heart tone is normal with fairly reactive tracing, with fairly good variabilit,y occasional acceleration, no decelerations. Her blood pressure is also under good control. Laboratory Tests Test 06/19/17 23:55 06/20/17 00:06 06/20/17 06:20 Urine Color JONI Urine Clarity CLEAR Urine pH 5.0 Urine Specific [place] 1.029 Urine Ketones 1+mg/dL Urine Nitrite NEGATIVEmg/dL Urine Bilirubin NEGATIVEmg/dL Urine Urobilinogen 2+mg/dL Urine Leukocyte Esterase NEGATIVELeu/ul Urine Microscopic RBC 0/HPF Urine Microscopic WBC 1/HPF Urine Mucus MANY/HPF Urine Hemoglobin NEGATIVEmg/dL Urine Glucose NEGATIVEmg/dL Urine Total Protein 1+mg/dl White Blood Count 12.110^3/ul Red Blood Count 3.8310^6/ul Hemoglobin 9.9g/dl Hematocrit 31.2% Mean Corpuscular Volume 81.5fl Mean Corpuscular Hemoglobin 25.8pg Mean Corpuscular Hemoglobin Concent 31.7g/dl Red Cell Distribution Width 14.6% Platelet Count 81423^3/UL Mean Platelet Volume 11.4fl Neutrophils % 68.2% Lymphocytes % 24.6% Monocytes % 5.0% Eosinophils % 1.7% Basophils % 0.2% Nucleated Red Blood Cells % 0.0/100WBC Neutrophils # 8.210^3/ul Lymphocytes # 3.010^3/ul Monocytes # 0.610^3/ul Eosinophils # 0.210^3/ul Basophils # 0.010^3/ul Nucleated Red Blood Cells # 0.010^3/ul Prothrombin Time 13.0Sec Prothrombin Time Ratio 1.0 INR International Normalized Ratio 0.97 Activated Partial Thromboplast Time 29.4Sec Fibrinogen 729.0mg/dl Sodium Level 138mmol/L Potassium Level 4.1mmol/L Chloride Level 105mmol/L Carbon Dioxide Level 25mmol/L Anion Gap 12 Blood Urea Nitrogen 8mg/dl Creatinine 0.52mg/dl Glucose Level 82mg/dl Uric Acid 3.9mg/dl Calcium Level 9.1mg/dl Total Bilirubin 0.7mg/dl Direct Bilirubin 0.00mg/dl Indirect Bilirubin 0.7mg/dl Aspartate Amino Transf (AST/SGOT) 19IU/L Alanine Aminotransferase (ALT/SGPT) 34IU/L Alkaline Phosphatase 212IU/L Total Protein 7.4g/dl Albumin 3.3g/dl Globulin 4.10g/dl Albumin/Globulin Ratio 0.80 Hepatitis B Surface Antigen NEGATIVE Urine Opiates Screen Negative Urine Barbiturates Negative Urine Amphetamines Screen Negative Urine Benzodiazepines Screen Negative Urine Cocaine Screen Negative Urine Cannabinoids Negative Current Medications Medications (Trade) Dose Ordered Sig/[place] Route PRN Reason Start Time Stop Time Status Last Admin Dose Admin Lactated Ringer's 1,000 ml @ 125 mls/hr Q8H IV 06/20/17 01:51 06/20/17 15:40 Ampicillin 100 ml @ 100 mls/hr ONCE ONCE IV 06/20/17 02:00 06/20/17 02:59 DC 06/20/17 04:46 Ampicillin (Ampicillin 1 Gm/ NS (Pmx)) 50 ml @ 100 mls/hr Q4H IV 06/20/17 06:00 06/20/17 15:40 Dinoprostone (Cervidil Vaginal Supp) 10 mg ONCE ONCE VAG 06/20/17 02:00 06/20/17 02:01 DC 06/20/17 03:44 Butorphanol Tartrate (Stadol) 1 mg Q2H PRN IV PAIN 06/20/17 02:00 Butorphanol Tartrate (Stadol) 2 mg Q2H PRN IV PAIN 06/20/17 02:00 Lidocaine 30 ml 30 ml ONCE PRN INJ EPISIOTOMY/TEARING 06/20/17 02:00 Oxytocin/Lactated Ringer's 500 ml @ 500 mls/hr ONCE POST IV 06/20/17 02:00 Oxytocin/Lactated Ringer's 500 ml @ 125 mls/hr POST IV 06/20/17 02:00 Ibuprofen (Motrin) 600 mg ONCE PRN PO Mild Pain (Pain Score 1-3) 06/20/17 02:00 Acetaminophen/ Hydrocodone Bitart 2 tab 2 tab ONCE PRN PO Moderate to Severe Pain (4-10) 06/20/17 02:00 Oxytocin/Lactated Ringer's 500 ml @ 0 mls/hr ONCE PRN IV For Hemorrhage Management 06/20/17 02:00 Methylergonovine Maleate (Methergine) 0.2 mg ONCE PRN IM VAGINAL BLEEDING 06/20/17 02:00 Carboprost Tromethamine (Hemabate) 250 mcg ONCE PRN IM VAGINAL BLEEDING 06/20/17 02:00 Misoprostol 1000 mcg 1,000 mcg ONCE PRN OR VAGINAL BLEEDING 06/20/17 02:00 Oxytocin/Lactated Ringer's 500 ml @ 50 mls/hr POST IV 06/20/17 02:30 Misoprostol (Cytotec 25 Mcg Capsule) 50 mcg Q4 PO 06/20/17 21:00 The plan would be to continue her induction with placing Cervidil and hopefully to have a spontaneous normal vaginal delivery . EMMA HUNTER MD Jun 20, 2017 18:32
[2017-06-20] MEDS ORDERED: DINOPROSTONE 10 MG VAG SUPP ONE (19:55)
[2017-06-20] MEDS ORDERED: MISOPROSTOL 25 MCG CAPSULE PO SCH (21:00)
[2017-06-21] MEDS: AMPICILLIN 1 GM/NS (PMX) 50 ML IV SCH ×6 (00:06→20:50)
[2017-06-21] MEDS ORDERED: AMPICILLIN 1 GM/NS (PMX) 50 ML IV SCH (00:30)
[2017-06-21] MEDS: LACTATED RINGER'S 1,000 ML IV SCH ×3 (02:53→23:07)
[2017-06-21] MEDS: MISOPROSTOL 25 MCG CAPSULE PO SCH ×4 (09:28→21:00)
[2017-06-21] MEDS ORDERED: OXYTOCIN 30 UNITS/LR 500 ML IV SCH (16:30)
[2017-06-22] MEDS: AMPICILLIN 1 GM/NS (PMX) 50 ML IV SCH ×2 (00:15→03:51)
[2017-06-22] MEDS ORDERED: FENTAnyl 2MCG/ML-ROPIV 0.2% 100 ML ONE (01:33)
[2017-06-22] MEDS ORDERED: NALOXONE (0.4 MG/ML) INJ IV PRN (02:00)
[2017-06-22] MEDS ORDERED: ONDANSETRON 4 MG INJ IV PRN (02:00)
[2017-06-22] MEDS ORDERED: DIPHENHYDRAMINE 50 MG INJ IV PRN (02:00)
[2017-06-22] MEDS ORDERED: FENTAnyl 2MCG/ML-ROPIV 0.2% 100 ML BAG EPI SCH (02:00)
[2017-06-22] MEDS: MISOPROSTOL 25 MCG CAPSULE PO SCH (03:49)
[2017-06-22] MEDS ORDERED: KETOROLAC 30 MG INJ IV STA (07:00)
[2017-06-22] MEDS ORDERED: KETOROLAC 30 MG INJ ONE (07:07)
[2017-06-22] MEDS: LACTATED RINGER'S 1,000 ML IV* SCH ×2 (07:13→15:13)
[2017-06-22] MEDS ORDERED: OXYTOCIN 30 UNITS/LR 500 ML IV SCH (07:13)
--- NOTE | 2017-06-22 07:26 | LDN ---
Date/Time of Note Date/Time of Note DATE: 06/22/17 TIME: 07:16 Delivery Summary of a viable baby boy weighing 3640 grams or 8#, 19.5" long, and with Apgars of 8/9. Weeks of Gestation 40w Placenta Delivered: Spontaneously Meconium: none Episiotomy: No Perineal laceration: 0 Anesthesia type: Epidural Estimated blood loss: 200 Sponge & Needle done & correct: Yes All needle counts correct: Yes Any foreign bodies felt in the: No (vagina) Problems: Delivery Information Sex Infant Sex: male Apgars 1 Minute: 8 5 Minute: 9 Suctioning Nose & mouth suctioned at mayuri: Yes Delee suction performed: No Umbilical Cord Cord presentations: no nuchal cord Cord Blood was obtained: Yes Mother & Baby Disposition Disposition Mom & Baby to Maternity; Good: Yes Baby to NICU: No LEONARD DING MD Jun 22, 2017 07:26
[2017-06-22] MEDS ORDERED: HYDROCODONE/APAP (5/325) TAB PO PRN (07:30)
[2017-06-22] MEDS ORDERED: OXYTOCIN 30 UNITS/LR 500 ML IV PRN (07:30)
[2017-06-22] MEDS ORDERED: METHYLERGONOVINE 0.2 MG INJ IM PRN (07:30)
[2017-06-22] MEDS ORDERED: CARBOPROST 250 MCG INJ IM PRN (07:30)
[2017-06-22] MEDS ORDERED: MISOPROSTOL 200 MCG TAB PR PRN (07:30)
[2017-06-22] MEDS ORDERED: LANOLIN 7 GM TUBE TOP PRN (07:30)
--- NOTE | 2017-06-22 07:35 | QN ---
Documentation Comment Late entry progress note for 06/21. Pt was induced on 06/19 with by various means( cervidil,etc) as an ER panel pt and as a multip. When I came on at 7PM I discussed with her the option of going home or breaking her water and being more aggressive with the labor and she opted for that option as apparently she does not a clinic for follow-up at this point in time. On exam she was 60%/3 CM/-3. The water was clear upon rupture and the heart tracing was very reactive and with good variability. Pitocin was initiated. LEONARD DING MD Jun 22, 2017 07:35
[2017-06-22 09:00] VITALS: BP 118/65; PULSE 72; RESP 17
[2017-06-22 11:55] VITALS: BP 112/59; PULSE 72; RESP 16
[2017-06-22] MEDS: IBUPROFEN 600 MG TAB PO SCH ×3 (13:20→23:57)
[2017-06-22 16:00] VITALS: BP 114/74; PULSE 88; RESP 18
[2017-06-22 19:50] VITALS: BP 115/63; PULSE 79; RESP 18
[2017-06-23] VITALS: BP 99/51; PULSE 74; RESP 18
[2017-06-23 04:30] VITALS: BP 120/73; PULSE 78; RESP 16
[2017-06-23] MEDS: IBUPROFEN 600 MG TAB PO SCH ×4 (05:43→23:46)
[2017-06-23 08:34] VITALS: BP 95/51; PULSE 76; RESP 19
[2017-06-23 11:31] LABS: BASOPHILS % 0.2 % (0.0-2.0); EOSINOPHILS # 0.2 10^3/ul (0.0-0.5); EOSINOPHILS % 2.5 % (0.0-7.0); HEMATOCRIT 26.4 % (37.0-47.0); HEMOGLOBIN 8.4 g/dl (12.0-16.0); LYMPHOCYTES # 2.7 10^3/ul (0.8-2.9); LYMPHOCYTES % 29.2 % (15.0-51.0); MEAN CORPUSCULAR HEMOGLOBIN 26.5 pg (29.0-33.0); MEAN CORPUSCULAR HGB CONC 31.8 g/dl (32.0-37.0); MEAN CORPUSCULAR VOLUME 83.3 fl (82.0-101.0); MEAN PLATELET VOLUME 11.5 fl (7.4-10.4); MONOCYTE # 0.5 10^3/ul (0.3-0.9); MONOCYTES % 5.4 % (0.0-11.0); NEUTROPHIL # 5.8 10^3/ul (1.6-7.5); NEUTROPHILS % 62.4 % (39.0-77.0); PLATELET COUNT 245 10^3/UL (140-415); RED BLOOD COUNT 3.17 10^6/ul (4.20-5.40); RED CELL DISTRIBUTION WIDTH 14.7 % (11.5-14.5); WHITE BLOOD COUNT 9.3 10^3/ul (4.8-10.8)
[2017-06-23 12:26] LABS: RUBELLA ANTIBODY - IGG 2.48 index
--- NOTE | 2017-06-23 13:44 | QN ---
Documentation Comment PPD#1 is stable afebrile tolerated Diet No VB +BM +voids Vs stable Gen NAD Abd soft NT ND Genitalia No blood at perinium --->discharge plan tomorrow --->Ambulation CHANDLER GILL M.D. Jun 23, 2017 13:44
[2017-06-23 16:00] VITALS: BP 131/86; RESP 18
[2017-06-23 20:45] VITALS: BP 111/64; PULSE 71; RESP 17
[2017-06-24 04:00] VITALS: BP 121/71; PULSE 74; RESP 17
[2017-06-24] MEDS: IBUPROFEN 600 MG TAB PO SCH ×2 (06:01→12:02)
[2017-06-24 08:10] VITALS: BP 120/81; PULSE 66; RESP 18
[2017-06-24] MEDS ORDERED: DIPHTH/TET/ACEL PERTUSS (ADULT) 0.5 ML VIAL IM* ONE (09:00)
--- NOTE | 2017-06-24 12:09 | PN ---
Date/Time of Note Date/Time of Note DATE: 06/24/17 TIME: 12:06 OB Subjective Subjective Subjective Denies , blurred vision or epigastric pain. Baby is in NICU. Patient is pumping her breasts. Vaginal bleeding decreased. Has mild headache. Ambulating without any complaint. Denies any dizziness, lightheadedness, shortness of breath or chest pain Patient reports a lot of stress due to family situation and the fact that baby is in NICU now OB Objective Objective Objective General appearance: Alert and oriented 4. Patient does not appear to be in any acute distress. Abdomen: Soft, no fundal tenderness, no rigidity, no guarding no tenderness Extremities: No calf tenderness, no click no cords HEENT within normal limits Breasts: No evidence of engorgement or mastitis or fissure OB Assessment/Plan Other Assessment: Status post , day #2 anemia, chronic and status Asymptomatic Gestational hypertension status post induction. Currently blood pressures are normal. Plan: DC home Follow-up with OB office within 2 weeks for monitoring and checking the blood pressure Iron twice a day with a stool softener . MATTHEW COVINGTON MD Jun 24, 2017 12:09
--- NOTE | 2017-06-24 12:14 | DS ---
Date/Time of Note Date/Time of Note DATE: 06/24/17 TIME: 12:12 Obstetrical Discharge Record Final Diagnosis Final Diagnosis: Term delivered Other Final Diagnosis IUP at 39 weeks plus [place]induced hypertension, gestational hypertension Anemia likely related to Vaginal Delivery Obstetrical Delivery: Spontaneous Other Delivery information Status post induction due to gestational hypertension at 39+ weeks Delivered non-complicated Chronic anemia Intraoperative care Complications Preg induced Hypertension Augmentation: No Induction: Yes Rupture of Membranes: No Condition on Discharge Physical Assessment Voiding: Yes Bowel Movement: Yes Breast: Soft, non-tender Fundus: Firm Abdomen and Incision: General appearance: Alert and oriented 4. Appears to be in mild to moderate distress due to family situation as well as being baby in the NICU . Soft, no fundal tenderness, fundus palpable 2 cm below the umbilicus Extremities: No calf tenderness, no click no cords palpable maternal obesity Breast: No evidence of engorgement of mastitis or fissure Hematology - 72 Hrs Test 06/23/17 11:17 White Blood Count 9.310^3/ul (4.8-10.8) # Red Blood Count 3.1710^6/ul (4.20-5.40) L Hemoglobin 8.4g/dl (12.0-16.0) L Hematocrit 26.4% (37.0-47.0) L Mean Corpuscular Volume 83.3fl (82.0-101.0) Mean Corpuscular Hemoglobin 26.5pg (29.0-33.0) L Mean Corpuscular Hemoglobin Concent 31.8g/dl (32.0-37.0) L Red Cell Distribution Width 14.7% (11.5-14.5) H Platelet Count 65007^3/UL (140-415) Mean Platelet Volume 11.5fl (7.4-10.4) H Neutrophils % 62.4% (39.0-77.0) Lymphocytes % 29.2% (15.0-51.0) Monocytes % 5.4% (0.0-11.0) Eosinophils % 2.5% (0.0-7.0) Basophils % 0.2% (0.0-2.0) Nucleated Red Blood Cells % 0.0/100WBC (0.0-0.0) Neutrophils # 5.810^3/ul (1.6-7.5) Lymphocytes # 2.710^3/ul (0.8-2.9) Monocytes # 0.510^3/ul (0.3-0.9) Eosinophils # 0.210^3/ul (0.0-0.5) Basophils # 0.010^3/ul (0.0-0.1) Nucleated Red Blood Cells # 0.010^3/ul (0.0-0.0) Calf Tenderness: No Patient Condition: MATTHEW Palacios MD Jun 24, 2017 12:14
== END 2017-06-24 17:36 | disposition home or self-care (01) | DRG 775 ==
LOC: OBT 22:13 → L-D 22:14 → OBT 06-20 02:13 → L-D 06-20 02:21 → PP1 06-22 08:51
PROVIDERS: ADMIT Obstetrics & Gynecology; ATTEND Obstetrics & Gynecology
PROC: 3E0P7GC Introduction of Other Therapeutic Substance into Female Reproductive, Via Natural or Artificial Opening (ICD-10-PCS; 2017-06-20)
PROC: 3E0P7VZ Introduction of Hormone into Female Reproductive, Via Natural or Artificial Opening (ICD-10-PCS; 2017-06-20)
PROC: 10907ZC Drainage of Amniotic Fluid, Therapeutic from Products of Conception, Via Natural or Artificial Opening (ICD-10-PCS; 2017-06-21)
PROC: 10E0XZZ Delivery of Products of Conception, External Approach (ICD-10-PCS; principal; 2017-06-22)
DX: O13.4 Gestational [pregnancy-induced] hypertension without significant proteinuria, complicating childbirth (principal); Z68.43 Body mass index [BMI] 50.0-59.9, adult; O99.214 Obesity complicating childbirth; E66.01 Morbid (severe) obesity due to excess calories; O99.02 Anemia complicating childbirth; Z3A.39 39 weeks gestation of pregnancy; Z37.0 Single live birth
CPT/HCPCS: 36415; 62319; 76815; 76818; 80053; 80307; 81001; 84560; 85025; 85384; 85610; 85730; 86592; 86703; 86762; 86850; 86900; 86901; 87086; 87340; 90715; G0463; J0290; J1885; J2405; J2590; J3010; J7120